=== PATIENT | female | born 1990 | race Caucasian/White ===

== ENCOUNTER 2019-05-09 00:33 | Emergency (ER) | payer SELFPAY ==
[~2019-05-09] VITALS: Ht 144.8 cm; Wt 129.3 kg
--- OUTSIDE RECORDS SUMMARY | 2019-05-09 00:35 | XMS REPORT ---
Author Author [facility] Address Unknown Phone Unavailable Care Team Providers Care Clinical Data Associate Name Role Phone SOURAV RUBIN Unavailable Unavailable Problems This patient has no known problems. Allergies, Adverse Reactions, Alerts This patient has no known allergies or adverse reactions. Medications This patient has no known medications. Results Test Description Test Time Test Comments Text Results Atomic Results Result Comments ANAEROBIC CULTURE 2018-06-27 17:55:00 CULTURE (BEAKER) (test szew=8976) No anaerobes isolated TISSUE [id number] 16:42:00Surgical Pathology Report Case: [id number] Authorizing Provider: Eric Rubin MD Collected: 06/22/2018 0807 Ordering Location: [facility] Received: 06/22/2018 1156 SERVICES Pathologist: Merle Grey MD Specimens: A) - Septum, Septal bone and cartilage B) - Sinus, Right, Right sinus content A.NOSE, SEPTUM, SEPTOPLASTY: - OSTEOCARTILAGINOUS TISSUE CONSISTENT WITH NASAL SEPTUM (GROSS ONLY) B. PARANASAL SINUS, RIGHT, CONTENTS: - CHRONIC SINUSITIS - BONE AND SEROMUCINOUS GLANDS WITH NO PATHOLOGIC ALTERATION -NO GRANULOMAS OR MALIGNANCY SEEN Signing Pathologist Direct Phone Line: [phone] signed by Merle Grey MD on 06/27/2018 at 4:42 [id number]; [id number]; [id number] pansinusitis, deviated septum, hypertrophy of nasal turbinates A. Septal bone and cartilage. B. Right sinus contents Specimen A: Received in saline labeled "septum" are multiple plate-like fragments of hickman-white cartilage and osseous tissue measuring 3.5 x 2.0 x 0.2 cm in aggregate. The specimen is for grossly identification only.Specimen B: Received in saline labeled "sinus, right" is a 1.0 x 0.5 x 0.3 cm hickman-white to yellow-bryan irregular portion of soft and osseous tissue. Specimen is entirely submitted in cassette B1 for decalcification. DB/ewPERFORMEDSURGICALLY OBTAINED CULTURE + GRAM [id number] 15:15:00* Test Item Value Reference Range Comments CULTURE (BEAKER) (test fqgz=9044) STAPHYLOCOCCUS AUREUS 3+ Staphylococcus aureus Clindamycin (test code=10) Erythromycin (test code=4) Linezolid (test code=40) Nitrofurantoin (test code=23) Oxacillin (test code=14) Rifampin (test code=43) Tetracycline (test code=2) Trimethoprim + Sulfamethoxazole (test code=47) Vancomycin (test code=13) GRAM STAIN RESULT (BEAKER) (test ulin=4018) 1+ WBCs GRAM STAIN RESULT (BuzAKER) (test dhux=[id number]) No organisms seen
== END 2019-05-09 01:10 | disposition left against medical advice (07) ==
LOC: ER 00:33
DX: J30.89 Other allergic rhinitis (principal)

== ENCOUNTER 2024-02-09 22:20 | Emergency (ER) | payer OTHER ==
[~2024-02-09] VITALS: Ht 144.8 cm; Wt 129.3 kg
[2024-02-09] MEDS: ONDANSETRON HCL 4 MG ORAL DISINTEGRATING TAB PO ONE (22:56)
[2024-02-09] MEDS: KETOROLAC TROMETHAMINE 60 MG/2 ML VIAL IM ONE (22:57)
[2024-02-09 23:24] LABS: BILIRUBIN,URINE NEGATIVE (NEGATIVE); CLARITY,URINE CLEAR (CLEAR); COLOR,URINE YELLOW (YELLOW); GLUCOSE, URINE 500 (NEGATIVE); KETONES,URINE 1+ (NEGATIVE); LEUKOCYTE ESTERASE ,URINE NEGATIVE (NEGATIVE); NITRITE,URINE NEGATIVE (NEGATIVE); PH,URINE 6 (5 - 7); PROTEIN,URINE DIPSTICK NEGATIVE (NEGATIVE); URINE UROBILINOGEN 0.2 mg/dL (0.2 - 1)
[2024-02-09 23:43] LABS: RBC,URINE 0-5 /HPF (0-5)
[2024-02-09 23:44] LABS: BACTERIA,URINE MANY /HPF; EPITHELIAL CELLS,URINE MANY /LPF
[2024-02-10] MEDS ORDERED: KETOROLAC TROME10 MG PO (02:02)
[2024-02-10 02:09] VITALS: PULSE 88; RESP 17; TEMP 98.2; O2SAT 97
== END 2024-02-10 02:10 | disposition home or self-care (01) ==
LOC: ER 22:30
DX: R10.11 Right upper quadrant pain (principal)
CPT/HCPCS: 74176; 81001; 81025; 99283; J1885; Q0162